=== PATIENT | female | born 1950 | race Caucasian/White ===

== ENCOUNTER → 2021-12-05 08:52 | Outpatient (CLI) | payer MEDICARE, SELFPAY ==
--- NOTE | 2021-12-05 | DI.MG.S_ITS ---
UNILATERAL RIGHT DIGITAL DIAGNOSTIC MAMMOGRAM 3D/2D WITH ADDITIONAL VIEWS: 12/05/2021 CLINICAL: Additional evaluation requested from prior study. Comparison is made to exams dated: 10/01/2021 mammogram, 09/14/2020 mammogram, and 05/30/2018 mammogram - [facility]. The tissue of right breast is heterogeneously dense. This may lower the sensitivity of mammography. The architectural distortion in the right breast at 10 o'clock middle depth is seen in additional views. However, this is likely similar to multiple prior mammograms. No other significant masses or calcifications are seen in the breast. IMPRESSION: INCOMPLETE: NEEDS ADDITIONAL IMAGING EVALUATION The architectural distortion in the right breast is indeterminate. A targeted ultrasound of the right breast is recommended and will be performed immediately following this exam. This exam was interpreted at Station ID: [id number]. NOTE: For mammograms, a report in lay terms will be sent to the patient. Approximately 15% of breast malignancies will not be visualized mammographically. In the management of a palpable breast mass, a negative mammogram must not discourage biopsy of a clinically suspicious lesion. Electronically Signed By: Sindhu Marroquin M.D. lk/:12/05/2021 09:49:31 ACR BI-RADS Category 0: Incomplete [id number]
--- NOTE | 2021-12-05 | DI.US.S_ITS ---
ULTRASOUND OF RIGHT BREAST: 12/05/2021 CLINICAL: Patient returns today to evaluate an architectural distortion in the right breast. Comparison is made to exams dated: 12/05/2021 mammogram - [facility], 10/01/2021 mammogram, 09/14/2020 mammogram, 05/30/2018 mammogram, and 09/09/2006 ultrasound - [facility]. Real-time ultrasound of the right breast was performed on the areas of interest. Calderon scale images of the real-time examination were reviewed. IMPRESSION: NEGATIVE There is no sonographic evidence of malignancy. There is no abnormality seen in the right breast to correspond with the architectural distortion seen on mammogram. Of note, this is unchanged from multiple prior studies and likely represents the patient's normal fibroglandular tissue. A 1 year screening mammogram is recommended. This exam was interpreted at Station ID: [id number]. Electronically Signed By: Sindhu Marroquin M.D. lk/:12/05/2021 14:52:31 letter sent: Normal Exam Ultrasound BI-RADS: 1 Negative
== END ==
PROVIDERS: PCP Registered Nurse; Referring Provider Registered Nurse; Visit Provider Registered Nurse
DX: R92.8 Other abnormal and inconclusive findings on diagnostic imaging of breast (principal); N64.89 Other specified disorders of breast
CPT/HCPCS: 76642; 77065; G0279

== ENCOUNTER → 2024-10-01 10:26 | Outpatient (CLI) | payer MEDICARE, SELFPAY ==
--- NOTE | 2024-10-01 10:31 | DI.MG.S_ITS ---
BILATERAL DIGITAL SCREENING MAMMOGRAM 3D/2D WITH CAD POST LUMPECTOMY: 10/01/2024 CLINICAL: Routine screening. Personal history of left breast cancer. Comparison is made to exams dated: 12/04/2022 mammogram, 10/01/2021 mammogram, and 09/14/2020 mammogram - [facility]. The breasts are heterogeneously dense, which may obscure small masses (category c / 51-75% glandular tissue). Current study was also evaluated with a Computer Aided Detection (CAD) system. There is an irregular equal density focal asymmetry with a spiculated margin in the right breast at 1 o'clock middle depth. There also is irregular architectural distortion in the right breast anterior depth lateral region seen on the craniocaudal view only. This is more prominent. No other significant masses, calcifications, or other findings are seen in either breast. IMPRESSION: INCOMPLETE: NEED ADDITIONAL IMAGING EVALUATION The irregular equal density focal asymmetry in the right breast at 1 o'clock middle depth is indeterminate. Additional views with possible ultrasound are recommended. The irregular architectural distortion in the right breast anterior depth lateral region seen on the craniocaudal view only is indeterminate. Additional views with possible ultrasound are recommended. This exam was interpreted at Station ID: [id number]. NOTE: For mammograms, a report in lay terms will be sent to the patient. Approximately 15% of breast malignancies will not be visualized mammographically. In the management of a palpable breast mass, a negative mammogram must not discourage biopsy of a clinically suspicious lesion. Electronically Signed By: Jia [email or web address]/marci:10/01/2024 17:37:31 letter sent: Additional Imaging Needed ACR BI-RADS Category 0: Incomplete: Need Additional Imaging Evaluation
== END ==
LOC: MAMMO 10:30
PROVIDERS: PCP Registered Nurse; Referring Provider Registered Nurse; Visit Provider Registered Nurse
DX: Z12.31 Encounter for screening mammogram for malignant neoplasm of breast (principal); Z85.3 Personal history of malignant neoplasm of breast; R92.333 Mammographic heterogeneous density, bilateral breasts
CPT/HCPCS: 77063; 77067